=== PATIENT | male | born 1980 | race Caucasian/White ===

== ENCOUNTER 2017-02-13 12:27 | Emergency (ER) | payer SELFPAY ==
[2017-02-13 12:42] VITALS: BP 111/70; PULSE 89; RESP 18; TEMP 97.9
[2017-02-13] MEDS ORDERED: BUPIVACAINE (PF) 0.5% 30 ML VIAL SQ STA (13:00)
--- NOTE | 2017-02-13 13:07 | ED ---
ENT HPI - General Chief complaint: Dental/Oral Stated complaint: Tooth Ache Time Seen by Provider: 02/13/17 12:43 Source: patient, RN notes reviewed, old records reviewed Mode of arrival: ambulatory Limitations: no limitations - History of Present Illness Initial comments: Patient 36-year-old male chief complaint of right lower tooth pain for approximately 2 days. Patient reports that he fractured his tooth a few weeks ago. She denies any difficulty opening or closing his jaw. Denies any fever or chills. He noticed some swelling over the lower left teeth. He denies any chest pain, shortness of breath, nausea, vomiting, abdominal pain. - Related Data Previous Rx's Medication Instructions Recorded HYDROcodone/APAP 5-325MG [[place] 1 tab PO Q6HR PRN #12 tab 02/13/17 5-325] Penicillin V Potassium [Pen Vee K] 500 mg PO QID #40 tab 02/13/17 Allergies Allergy/AdvReac Type Severity Reaction Status Date / Time No Known Allergies Allergy Verified 02/13/17 13:08 Review of Systems ROS Statement: Those systems with pertinent positive or pertinent negative responses have been documented in the HPI. ROS Other: All systems not noted in ROS Statement are negative. Past Medical History Past Medical History: No Reported History History of Any Multi-Drug Resistant Organisms: None Reported Additional Past Surgical History / Comment(s): bone graft Past Psychological History: No Psychological Hx Reported Smoking Status: Current every day smoker Past Alcohol Use History: None Reported Past Drug Use History: Marijuana General Exam - General Exam Comments Initial Comments: Well-appearing 28-year-old male in no distress. Limitations: no limitations General appearance: alert, in no apparent distress Head exam: Present: atraumatic, normocephalic, normal inspection Eye exam: Present: normal appearance, PERRL, EOMI. Absent: scleral icterus, conjunctival injection, periorbital swelling ENT exam: Present: normal exam, mucous membranes moist. Absent: normal oropharynx (Fracture tooth #30. Swelling around tooth #30 as well.) Neck exam: Present: normal inspection. Absent: tenderness, meningismus, lymphadenopathy Respiratory exam: Present: normal lung sounds bilaterally. Absent: respiratory distress, wheezes, rales, rhonchi, stridor Cardiovascular Exam: Present: regular rate, normal rhythm, normal heart sounds. Absent: systolic murmur, diastolic murmur, rubs, gallop, clicks GI/Abdominal exam: Present: soft, normal bowel sounds. Absent: distended, tenderness, guarding, rebound, rigid Extremities exam: Present: normal inspection, full ROM, normal capillary refill. Absent: tenderness, pedal edema, joint swelling, calf tenderness Back exam: Present: normal inspection Neurological exam: Present: alert, oriented X3, CN II-XII intact Psychiatric exam: Present: normal affect, normal mood Skin exam: Present: warm, dry, intact, normal color. Absent: rash Course Vital Signs 02/13/17 12:39 Temperature 97.9 F Pulse Rate 89 Respiratory 18 Rate Blood Pressure 111/70 O2 Sat by Pulse 98 Oximetry Procedures - Nerve Block Local Anesthetic Used: Marcaine 0.5% Amount of anesthesia used: 5 Side: right Intraoral Nerve Block: inferior alveolar Procedure Successful: Yes Patient Tolerated Procedure: well, no complications Medical Decision Making - Medical Decision Making atient 36-year-old male chief complaint of right lower tooth pain for approximately 2 days. Patient reports that he fractured his tooth a few weeks ago. She denies any difficulty opening or closing his jaw. Patient is given a right inferior alveolar block. Procedure was successful. Patient be discharged with Pen-Vee K and pain medication. Patient was given dental instructions. Return parameters were discussed. Patient understands treatment plan will comply Disposition Clinical Impression: Pain, dental, Dental abscess Disposition: HOME SELF-CARE Condition: Good Instructions: Dental Abscess (ED) Additional Instructions: [facility] [address] [address] [phone] (existing clients only) For new clients: [phone] 1st consult: $50 (includes Xrays) Usually 30% less then private dentist for visits after. [employer] Have to pay $50 for Xrays anmd rest is covered. [phone] Prescriptions: HYDROcodone/APAP 5-325MG [[place] 5-325] 1 tab PO Q6HR PRN #12 tab PRN Reason: Pain Penicillin V Potassium [Pen Vee K] 500 mg PO QID #40 tab Referrals: Yvonne Saleh MD [STAFF PHYSICIAN] - 1-2 days Time of Disposition: 13:05
== END 2017-02-13 13:25 | disposition home or self-care (01) ==
LOC: EC 12:27
DX: K08.89 Other specified disorders of teeth and supporting structures (principal); K04.7 Periapical abscess without sinus; S02.5XXA Fracture of tooth (traumatic), initial encounter for closed fracture; F17.200 Nicotine dependence, unspecified, uncomplicated; X58.XXXA Exposure to other specified factors, initial encounter
CPT/HCPCS: 64400; 99283

== ENCOUNTER → 2023-09-25 | Day surgery (SDC) | payer OTHER ==
[2023-09-22 14:29] VITALS: BMI 21.7
[~2023-09-25] MED LIST: BACITRACIN OINT 1 EACH PACKET TOPICAL ONE; DEXAMETHASONE SOD PHOSPHATE 4 MG/ML 1 ML VIAL IV ONE; DEXAMETHASONE SOD PHOSPHATE 4 MG/ML 1 ML VIAL ONE; GLYCOPYRROLATE 0.2 MG/ML 2 ML VIAL ONE; HYDROmorphone 0.5 MG/0.5 ML SYRINGE IVP PRN; KETAMINE HCL IN 0.9 % NACL 50 MG/5 ML SYRINGE ONE; KETOROLAC 15 MG/ML 1 ML VIAL ONE; LACTATED RINGERS 1,000 ML IV ONE; LACTATED RINGERS 1,000 ML IV SCH; LIDOCAINE 1% (10MG/ML) FOR IV START INTRADERMA PRN; LIDOCAINE 1% INJ 10MG/ML (20 ML MDV) ONE; MIDAZOLAM 2 MG/2 ML VIAL IV PRN; MIDAZOLAM 2 MG/2 ML VIAL IVP ONE; MIDAZOLAM 2 MG/2 ML VIAL ONE; ONDANSETRON 4 MG/2 ML VIAL IVP ONE; PHENYLEPHRINE 10 MG/ML 5 ML VIAL ONE; PROPOFOL 10 MG/ML 20 ML VIAL IV ONE; Pre Op ABX Message 1 EACH MISC MISCELLANE ONE; ROPIVACAINE 5 MG/ML 30 ML VIAL ONE; SCOPOLAMINE 1 MG/72 HR PATCH TRANSDERM ONE; SODIUM CHLORIDE 0.9% 50 ML with ceFAZolin 2,000 MG IV ONE; diphenhydrAMINE 50 MG/ML 1 ML VIAL IVP ONE; diphenhydrAMINE 50 MG/ML 1 ML VIAL ONE
[2023-09-25 12:14] VITALS: RESP 16; TEMP 98.6
--- NOTE | 2023-09-25 13:11 | P.ANPRN ---
Procedure Note - Anesthesia - Nerve Block Performed Left Supraclavicular Single Time Out Performed: Yes Date of Procedure: 09/25/23 Procedure Start Time: 12:50 Procedure Stop Time: 12:56 Location of Patient: PreOp Indication: Acute Post-Operative Pain, Requested by Surgeon Sedation Type: Sedate with meaningful contact maintained Preparation: Sterile Prep Position: Sitting Catheter: None Needle Types: Pajunk Needle Gauge: 21 Ultrasound used to visualize needle placement: Yes Ultrasound used to observe medication spread: Yes Injectate: 0.5% Ropivacaine (see comment for volume) (20 ml) Blood Aspirated: No Pain Paresthesia on Injection Noted: No Resistance on Injection: Normal Image Stored and Saved: Yes Events: Uneventful and Well Tolerated
[2023-09-25 16:09] VITALS: BP 113/67; PULSE 83
--- NOTE | 2023-09-29 08:26 | P.OP ---
Date of Procedure: 09/28/23 Preoperative Diagnosis: Left carpal tunnel syndrome, Left small finger FDP and FDS laceration Postoperative Diagnosis: same Procedure(s) Performed: Left carpal tunnel release Left small finger FDP repair Anesthesia: jb BRITO Surgeon: Christine John Refinery Operator Coking #1: Karen Quiroz Estimated Blood Loss (ml): 5 Pathology: none sent Condition: stable Disposition: PACU Indications for Procedure: Patient caught himself on a metal roof when he started sliding on 08/20/23 sustaining a laceration to his small finger. He has no active flexion of the DIP or PIP of the small finger. He also has had long standing numbness and tingling in his index and middle fingertips that will occasionally wake him at night. He would like the flexor tendon repaired and the carpal tunnel released. Description of Procedure: The patient, operative extremity, and procedure were identified in the preoperative holding area. After informed consent was obtained, the patient received a regional block by the anesthesia team. The patient is on suboxone and there was concern that gris and postop pain would be difficult to manage. The patient was brought back to the OR and the extremity was then prepped and draped in normal sterile fashion with a tourniquet on the patients brachium. A formal timeout was performed and a longitudinal incision was made in the palm just proximal to kaplans cardinal line in line with the radial aspect of the rin g finger. Dissection was taken down to the palmar aponeurosis. This was released and dissection was continued to the transverse carpal ligament. This was visualized and divided under from the ulnar side of the ligament with a scalpel and scissors. A hemostat was inserted and gently spread confirming the release of the entire carpal tunnel. The median nerve was visualized and was found to be in good condition albeit with an hourglass shape. Attention was then turned to the small finger. A christiana incision was over the digit extending the laceration. DIssection was carried down to the flexor tendon sheath. The sheath was intact but filled with only pseudotendon. The distal stump of the FDP was identified under the A4 la nena. The christiana incision was extended proximally to the A1 la nena. The la nena was released and the flexor tendon sheath at this level was also empty. Attention was turned back to the carpal tunnel. The nerve and FDS tendons were mobilized and the FDP to the SF was identified and pulled into the proxinal wound. It was tagged and then threaded through the base of the digit and then up through the flexor tendon sheath. A4 was sacrificed to perfom the repair. A 6 strand modified cruciate repair was performed with 3.0 fiberwire. A peritendinous repair was performed with 6.0 prolene. The digit was taken through full range of motion and there was no gapping or catching of the repair. Tourniquet was let down, hemostasis was achieved, and the wound was closed with 4.0 nylon suture. Would was dressed with antibiotic ointment, adaptic, gauze, and placed in a dorsal blocking splint. Patient was aroused and brought to PACU in stable condition.
== END | disposition home or self-care (01) ==
LOC: OR 11:13
PROVIDERS: ATTEND Orthopaedic Surgery Hand Surgery
DX: S61.412A Laceration without foreign body of left hand, initial encounter (principal); G56.02 Carpal tunnel syndrome, left upper limb; X58.XXXA Exposure to other specified factors, initial encounter
CPT/HCPCS: 64415; 64721; J2250; J1200; J1100; J2405; J0690; J2001; J2795; J1885; J2704; J2371

== ENCOUNTER 2023-11-30 12:11 | Day surgery (SDC) | payer OTHER ==
[2023-11-25 09:38] VITALS: BMI 20.9
[~2023-11-30 12:11] MED LIST changes: -BACITRACIN OINT 1 EACH PACKET TOPICAL ONE; -DEXAMETHASONE SOD PHOSPHATE 4 MG/ML 1 ML VIAL ONE; -GLYCOPYRROLATE 0.2 MG/ML 2 ML VIAL ONE; -KETAMINE HCL IN 0.9 % NACL 50 MG/5 ML SYRINGE ONE; -KETOROLAC 15 MG/ML 1 ML VIAL ONE; -LACTATED RINGERS 1,000 ML IV ONE; -LIDOCAINE 1% (10MG/ML) FOR IV START INTRADERMA PRN; -LIDOCAINE 1% INJ 10MG/ML (20 ML MDV) ONE; -MIDAZOLAM 2 MG/2 ML VIAL IVP ONE; -MIDAZOLAM 2 MG/2 ML VIAL ONE; -PHENYLEPHRINE 10 MG/ML 5 ML VIAL ONE; -PROPOFOL 10 MG/ML 20 ML VIAL IV ONE; -ROPIVACAINE 5 MG/ML 30 ML VIAL ONE; -SODIUM CHLORIDE 0.9% 50 ML with ceFAZolin 2,000 MG IV ONE; -diphenhydrAMINE 50 MG/ML 1 ML VIAL IVP ONE; -diphenhydrAMINE 50 MG/ML 1 ML VIAL ONE
[2023-11-30] MEDS ORDERED: diphenhydrAMINE 50 MG/ML 1 ML VIAL ONE (12:30)
[2023-11-30 12:37] VITALS: TEMP 97.2
[2023-11-30] MEDS ORDERED: MIDAZOLAM 2 MG/2 ML VIAL ONE (12:49)
[2023-11-30] MEDS ORDERED: PROPOFOL 10 MG/ML 20 ML VIAL IV ONE (12:49)
[2023-11-30] MEDS ORDERED: PHENYLEPHRINE-0.9% NACL SYG 1,000 MCG/10 ML SYRINGE ONE (12:49)
[2023-11-30] MEDS ORDERED: KETAMINE HCL IN 0.9 % NACL 50 MG/5 ML SYRINGE ONE (12:49)
[2023-11-30] MEDS ORDERED: LIDOCAINE 1%-EPI 1:100,000 50 ML VIAL SQ ONE (12:59)
[2023-11-30] MEDS ORDERED: BUPIVACAINE (PF) 0.5% 30 ML VIAL SQ ONE (12:59)
[2023-11-30 14:18] VITALS: BP 100/69; PULSE 53; RESP 18
--- NOTE | 2023-12-01 13:52 | P.OP ---
Date of Procedure: 11/30/23 Preoperative Diagnosis: Right carpal tunnel syndrome Postoperative Diagnosis: same Procedure(s) Performed: Right carpal tunnel release Anesthesia: DARYL, local Surgeon: Christine John Estimated Blood Loss (ml): 2 Pathology: none sent Condition: stable Disposition: PACU Indications for Procedure: Patient has had numbness and tingling in his median nerve distribution and nighttime symptoms. He would like to proceed with carpal tunnel release. Description of Procedure: The patient, operative extremity, and procedure were identified in the preoperative holding area. After informed consent was obtained, the patient was brought back to the operating room. A local block was performed with lidocaine with epinephrine and 0.5% marcaine. The extremity was then prepped and draped in normal sterile fashion with a tourniquet on the patients brachium. A formal timeout was performed and a longitudinal incision was made in the palm just proximal to kaplans cardinal line in line with the radial aspect of the ring finger. Dissection was taken down to the palmar aponeurosis. This was released and dissection was continued to the transverse carpal ligament. This was visualized and divided under from the ulnar side of the ligament with a scalpel and scissors. A hemostat was inserted and gently spread confirming the release of the entire carpal tunnel. The median nerve was visualized and was found to be in good condition albeit with an hourglass shape. Hemostasis was achieved and the wound was closed with monocryl and skin glue. Wound was dressed with adaptic, gauze, and an brett wrap. Patient tolerated the procedure well and was brought back to PACU in stable condition.
== END 2023-11-30 14:27 | disposition home or self-care (01) ==
LOC: OR 12:11
PROVIDERS: ATTEND Orthopaedic Surgery Hand Surgery
DX: G56.01 Carpal tunnel syndrome, right upper limb (principal); Z79.899 Other long term (current) drug therapy; Z98.890 Other specified postprocedural states; Z87.891 Personal history of nicotine dependence
CPT/HCPCS: 64721; J2250; J1200; J1100; J2405; J2704; J2371; J0665

== ENCOUNTER → 2024-07-20 | Outpatient (CLI) | payer OTHER ==
--- NOTE | 2024-07-20 12:28 | CA ---
Exercise Stress Test Report Name: Shiraz Baker Exam Date: 07/20/2024 10:50 Exam Location: [facility] Ht (in): 72 Wt (lb): 145 BSA: 1.86 Ordering Phys: Gemini Alex MD Referring Phys: GEMINI ALEX,, Technologist: Amadou Huber Age: 44 Gender: M : 1980 Procedure CPT: Indications: R07.9 CHEST PAIN UNSPEC R94.31 ABNORMAL EKG ICD-10 Codes: Patient History: Chest pain and abnormal EKG Medications: Meds past 24 hrs: Pretest Chest Pain: STRESS TEST Jeremy Protocol Exercise Duration (min:sec): 12:[address] Depressions (mm): Angina Score: Mendez Score: Resting HR (bpm): 71 Peak HR (bpm): 153 Resting BP (mmHg): 115 / 71 Peak BP (mmHg): 155 / 82 MPHR: 174 Target HR: 148 % MPHR: 88 METS: 12.3 Total Dose: Peak Dose: Atropine: Double Product: 88230 BP Response: Stress Termination: Reached target heart rate Stress Symptoms: No chest pain or symptoms Stress Summary: ECG ANALYSIS Resting ECG: Normal sinus rhythm normal axis normal intervals Stress ECG: Patient exercised on Jeremy protocol for 12 minutes achieving 85% of predicted maximal heart rate without chest pain or diagnostic ST segment depression CONCLUSIONS Excellent exercise tolerance Negative stress test by EKG criteria Dr. Kwabena Denney MD (Electronically Signed) Final Date: 20 July 2024 12:27
== END | disposition home or self-care (01) ==
LOC: RADNMMAIN 10:21
PROVIDERS: ATTEND Family Medicine
DX: R07.9 Chest pain, unspecified (principal); R94.31 Abnormal electrocardiogram [ECG] [EKG]
CPT/HCPCS: 93017

== ENCOUNTER 2025-03-14 10:35 | Emergency (ER) | payer OTHER ==
--- NOTE | 2025-03-14 10:42 | ED ---
General Adult HPI - General Chief complaint: Head Injury Stated complaint: Head injury Time Seen by Provider: 03/14/25 10:40 Source: patient, RN notes reviewed Mode of arrival: ambulatory Limitations: no limitations - History of Present Illness Initial comments: 44-year-old male with no reported medical conditions presenting to emergency department for complaints of a headache after a head injury that occurred yesterday. Patient states that he was moving a large piece of equipment with a friend while his friend was using a toe strap. He states that the toe strap hit him on the left side of the head. Patient denies loss conscious at the time of the injury however has been having a persistent headache in the left side of his head with radiation to the front of his scalp over the past day. He also endorses persistent dizziness and nausea. Denies visual disturbances, neck pain, bleeding after the injury. Denies blood thinner use. - Related Data Home Medications Medication Instructions Recorded Confirmed ALPRAZolam [Xanax] 0.5 mg PO TID PRN 09/22/23 11/25/23 Buprenorphine-Nalox 8-2 mg Tab 1 tab SUBLINGUAL BID 09/22/23 11/25/23 [Suboxone 8-2 mg Tab] Levofloxacin [Levaquin] 500 mg PO DAILY 11/25/23 11/25/23 Allergies Allergy/AdvReac Type Severity Reaction Status Date / Time No Known Allergies Allergy Verified 03/14/25 10:38 Review of Systems ROS Statement: Those systems with pertinent positive or pertinent negative responses have been documented in the HPI. ROS Other: All systems not noted in ROS Statement are negative. Past Medical History Past Medical History: No Reported History History of Any Multi-Drug Resistant Organisms: None Reported Past Surgical History: Orthopedic Surgery Additional Past Surgical History / Comment(s): Left wrist surgery and bone graft, left baby finger tendon repair. Past Anesthesia/Blood Transfusion Reactions: Motion Sickness, Postoperative Nausea & Vomiting (PONV) Past Psychological History: Anxiety Smoking Status: Former smoker Past Alcohol Use History: None Reported Past Drug Use History: Marijuana - Past Family History Mother Family Medical History: No Reported History General Exam Limitations: no limitations Head exam: Present: other (left lateral head pain) Neck exam: Present: normal inspection. Absent: tenderness, meningismus, lymphadenopathy Respiratory exam: Present: normal lung sounds bilaterally. Absent: respiratory distress, wheezes, rales, rhonchi, stridor Cardiovascular Exam: Present: regular rate, normal rhythm, normal heart sounds. Absent: systolic murmur, diastolic murmur, rubs, gallop, clicks GI/Abdominal exam: Present: soft, normal bowel sounds. Absent: distended, tenderness, guarding, rebound, rigid Extremities exam: Present: normal inspection, full ROM, normal capillary refill. Absent: tenderness, pedal edema, joint swelling, calf tenderness Neurological exam: Present: alert, oriented X3, CN II-XII intact Course Vital Signs 03/14/25 03/14/25 10:36 11:39 Temperature 97.5 F L 97.9 F Pulse Rate 78 76 Respiratory 14 16 Rate Blood Pressure 104/75 108/82 O2 Sat by Pulse 96 97 Oximetry Medical Decision Making - Medical Decision Making Was pt. sent in by a medical professional or institution (, PA, AUTOMATIC MAINTAINER, urgent care, hospital, or penitentiary...) When possible be specific @ -No Did you speak to anyone other than the patient for history (EMS, parent, family, police, friend...)? What history was obtained from this source @ -No Did you review nursing and triage notes (agree or disagree)? Why? @ -I reviewed and agree with nursing and triage notes Were old charts reviewed (outside hosp., previous admission, EMS record, old EKG, old radiological studies, urgent care reports/EKG's, penitentiary records)? Report findings @ -No old charts were reviewed Differential Diagnosis (chest pain, altered mental status, abdominal pain women, abdominal pain men, vaginal bleeding, weakness, fever, dyspnea, syncope, headache, dizziness, GI bleed, back pain, seizure, CVA, palpatations, mental health, musculoskeletal)? @ -Concussion, intracranial hemorrhage, subdural hematoma, hematoma, muscle steno-occlusive EKG interpreted by me (3pts min.). @ -none X-rays interpreted by me (1pt min.). @ -None done CT interpreted by me (1pt min.). @ -CT of the brain without contrast no acute intracranial process U/S interpreted by me (1pt. min.). @ -None done What testing was considered but not performed or refused? (CT, X-rays, U/S, labs)? Why? @ -None What meds were considered but not given or refused? Why? @ -None Did you discuss the management of the patient with other professionals (professionals i.e. DrFacundo, PA, AUTOMATIC MAINTAINER, lab, RT, psych nurse, social work professor, production internship, teacher, appeals officer, caser shoe parts)? Give summary @ -No Was smoking cessation discussed for >3mins.? @ -No Was critical care preformed (if so, how long)? @ -No Were there social determinants of health that impacted care today? How? (Homelessness, low income, unemployed, alcoholism, drug addiction, transportation, low edu. Level, literacy, decrease access to med. care, senior care, rehab)? @ -No Was there de-escalation of care discussed even if they declined (Discuss DNR or withdrawal of care, Hospice)? DNR status @ -No What co-morbidities impacted this encounter? (DM, HTN, Smoking, COPD, CAD, Cancer, CVA, ARF, Chemo, Hep., AIDS, mental health diagnosis, sleep apnea, morbid obesity)? @ -None Was patient admitted / discharged? Hospital course, mention meds given and route, prescriptions, significant lab abnormalities, going to OR and other pertinent info. @ -Discharge. 44-year-old male presenting to the emergency department with complaints of headache and dizziness after a head injury that occurred yesterday. There is a mild scalp hematoma with no overlying laceration or skin abrasion. No neurological deficits. Provided with dose of Tylenol. CT of the brain no acute cranial process. Concussion supportive treatment discussed at bedside. Case discussed with Dr. carcamo Undiagnosed new problem with uncertain prognosis? @ -No Drug Therapy requiring intensive monitoring for toxicity (Heparin, Nitro, Insulin, Cardizem)? @ -No Were any procedures done? @ -No Diagnosis/symptom? @ -concussion, headache Acute, or Chronic, or Acute on Chronic? @ -acute Uncomplicated (without systemic symptoms) or Complicated (systemic symptoms)? @ -uncomplicated Side effects of treatment? @ -No Exacerbation, Progression, or Severe Exacerbation? @ -No Poses a threat to life or bodily function? How? (Chest pain, USA, MA, pneumonia, PE, COPD, DKA, ARF, appy, cholecystitis, CVA, Diverticulitis, Homicidal, Suicidal, threat to staff... and all critical care pts) @ -No Disposition Clinical Impression: Concussion, Closed head injury Disposition: HOME SELF-CARE Condition: Good Instructions (If sedation given, give patient instructions): Concussion (ED) Additional Instructions: Please return to the Emergency Department if symptoms worsen or any other concerns. Is patient prescribed a controlled substance at d/c from ED?: No Referrals: Joss Alex MD [Primary Care Provider] - 1-2 days Time of Disposition: 11:31
[2025-03-14] MEDS: ACETAMINOPHEN TAB 500 MG TAB PO STA (11:11)
--- NOTE | 2025-03-14 11:11 | CT ---
EXAMINATION TYPE: CT brain wo con CT DLP: 1258.6 mGycm, Automated exposure control for dose reduction was used. DATE OF EXAM: 03/14/2025 11:06 AM COMPARISON: None. CLINICAL INDICATION:Male, 44 years old with history of left sided head injury, headache, nausea, LEFT SIDED HEAD PAIN TECHNIQUE: Brain: Multiple axial CT images of the brain were obtained without IV contrast. . Coronal and sagitta l reformats reviewed. FINDINGS: Brain: Extra-axial spaces: No abnormal extra-axial fluid collections. Ventricular system: Within normal limits Cerebral parenchyma: No acute intraparenchymal hemorrhage or mass effect. The zuleta-white junction is well differentiated. Nonspecific bilateral basal ganglia calcifications. Cerebellum: Unremarkable. Mass effect: No evidence of midline shift. Intracranial vasculature: unremarkable Soft tissues: Normal. Calvarium/osseous structures: No depressed skull fracture. Paranasal sinuses and mastoid air cells: Clear Visualized orbits: Orbital contents are intact. IMPRESSION: No acute intracranial process. [facility], , 03/14/2025 11:09 AM
[2025-03-14 11:41] VITALS: BP 108/82; PULSE 76; RESP 16; TEMP 97.9
== END 2025-03-14 11:45 | disposition home or self-care (01) ==
LOC: EC 10:35
DX: S06.0XAA Concussion with loss of consciousness status unknown, initial encounter (principal); Z87.891 Personal history of nicotine dependence; X50.0XXA Overexertion from strenuous movement or load, initial encounter
CPT/HCPCS: 70450; 99283